=== PATIENT | female | born 1990 | race Caucasian/White ===

== ENCOUNTER 2020-08-19 18:21 | Emergency (ER) | payer SELFPAY ==
[2020-08-19 18:32] VITALS: BP 153/77; PULSE 118; RESP 18; TEMP 37.2; O2SAT 96; BMI 37.3
--- NOTE | 2020-08-19 19:01 | ED.UPPEXIN ---
HPI - Extremity Injury (Upper) General Chief Complaint: Extremity Injury, Upper Stated Complaint: LEFT HAND CAT BITE Time Seen by Provider: 08/19/20 18:58 Source: patient Mode of arrival: Ambulatory Limitations: no limitations History of Present Illness HPI narrative: This is a 29-year-old healthy female with unknown tetanus status. Patient thinks she has not had her tetanus updated least 5 years. She states today her cat got stuck she was trying to help get the cat removed and it became scared and bit her on the thumb region about an our prior to arrival. Patient states there has multiple wounds. One was having some difficulty with stopping bleeding. She states her cat is fully immunized. Patient states she has washed out the wound. She denies any allergies to medications. She states she has had on infection and adenoidectomy. Patient has some swelling at the site. Um no redness, no discharge. No numbness or tingling. Related Data Previous Rx's Medication Instructions Recorded amoxicillin-pot clavulanate 1 tab PO BID #14 tab 08/19/20 [Augmentin] Review of Systems Review of Systems ROS Unobtainable: All systems reviewed & are unremarkable except as noted in HPI and below Exam Narrative Exam Narrative: GENERAL: Alert and oriented x three, female in mild distress. HEENT: Head normocephalic, atraumatic, EOMI, pupils reactive, face symmetric, moist mucous membranes NECK: Supple, full range of motion CARDIOVASCULAR: Regular rate and rhythm without murmurs, rubs or gallops. RESPIRATORY: Breath sounds equal bilaterally, no wheezes rales or rhonchi. EXTREMITIES: Normal range of motion, no clubbing or edema. Neurovascularly intact. Patient has multiple puncture wounds and small abrasions on the thenar eminence and posterior some her left hand. There is some slight swelling. There is no warmth, no erythema or drainage noted. There is no active bleeding at this time. Patient does have full range of motion. NEUROLOGICAL: Cranial nerves II through XII grossly intact. Moving all extremities SKIN: Warm, dry, no petechiae, no rashes or lesions other than above. Initial Vital Signs Initial Vital Signs: Vital Signs Temperature 99 F 08/19/20 18:32 Pulse Rate 118 H 08/19/20 18:32 Respiratory Rate 18 08/19/20 18:32 Blood Pressure 153/77 H 08/19/20 18:32 Pulse Oximetry 96 08/19/20 18:32 Course Orders Ordered: Discontinued Medications Amoxicillin/Clavulanate Potassium (Amoxicillin/Clav 875/125 Mg) 1 tab PO NOW ONE Stop: 08/19/20 19:02 Last Admin: 08/19/20 19:12 Dose: 1 tab Documented by: VANESSA Diphtheria/Tetanus/Acell Pertussis (Tet,Diph,Pertuss(Acell),Vac/Pf 0.5 Ml Syringe) 0.5 ml IM .ONCE ONE Stop: 08/19/20 19:02 Last Admin: 08/19/20 19:12 Dose: 0.5 ml Documented by: VANESSA Vital Signs Vital signs: Vital Signs - 8 hr 08/19/20 18:32 Temperature 99 F Pulse Rate 118 H Respiratory Rate 18 Blood Pressure 153/77 H Pulse Oximetry 96 Discharge Plan Departure Patient Disposition: Home Clinical Impression: Cat bite of left thumb Qualifiers: Encounter type: initial encounter Qualified Code(s): S61.052A - Open bite of left thumb without damage to nail, initial encounter Instructions: DI for Cat Bite Activity Restrictions/Additional Instructions: Follow-up or return to the emergency department if you are having any signs of infection. Take antibiotics until they are completely gone. Prescription to [facility] You may take ibuprofen up to 600 mg every 6 hours and/or Tylenol up to a 1000 mg every 8 hours as needed for pain. Wound Care: Keep wound(s) clean and dry. Wash daily with soap and water only. Do not use over the counter products (alcohol or peroxide)on the wounds unless instructed by a physician you may use a topical triple antibiotic ointment to the affected area. If wound condition worsens (increased/expanding redness, developing fluid blisters, or worsening pain), either contact your doctor for an urgent re-assessment , or return to the Emergency Department. Return to the Emergency Department for any new or worsening symptoms. Return if fever greater than 100.4 Fahrenheit, increased swelling, increasing pain or worsening symptoms such as increased discharge or spreading redness, numbness, tingling or weakness or difficulty with movement. Prescriptions: New amoxicillin-pot clavulanate [Augmentin] 875-125 mg tablet 1 tab PO BID Qty: 14 RF: 0
[2020-08-19] MEDS: TET,DIPH,PERTUSS(ACELL),VAC/PF 0.5 ML SYRINGE IM (19:12)
[2020-08-19] MEDS: AMOXICILLIN/CLAV 875/125 MG 1 TAB PO (19:12)
== END 2020-08-19 19:17 | disposition home or self-care (01) ==
PROVIDERS: Emergency Provider Emergency Medicine
DX: S61.052A Open bite of left thumb without damage to nail, initial encounter (principal); W55.01XA Bitten by cat, initial encounter; Z23 Encounter for immunization
CPT/HCPCS: 90471; 99283; 90715

== ENCOUNTER 2024-05-24 21:53 | Emergency (ER) | payer OTHER, SELFPAY ==
[2024-05-24 22:01] VITALS: BP 175/100; PULSE 83; RESP 18; TEMP 37; O2SAT 98; BMI 37.3
[2024-05-24 22:09] VITALS: BP 172/85
--- NOTE | 2024-05-25 00:33 | ED_ITS ---
HPI - Eye Problem General Chief complaint: Eye Problems Stated complaint: visual changes, pain and swelling Time Seen by Provider: 05/25/24 00:33 Source: patient Mode of arrival: Ambulatory History of Present Illness HPI Narrative: Patient is a 33-year-old female without any significant past medical history who presents today in the emergency department from home for evaluation of eye irritation. She states that it started on Tuesday05/22/2024. States that she feels like there is some pressure to her eyes, patient denies any actual vision loss. She does wear glasses at baseline intermittently with contacts. Denies any trauma or falls. She states that given the discharge that is occurring from her eyes she is having blurry vision but denies any actual loss of vision. She denies any trauma. Not complaining of any other symptoms at this time. Related Data Previous Rx's Medication Instructions Recorded erythromycin 5 mg/gram (0.5 %) eye 0.5 inch EYE-BOTH Q6H 1 week #50 05/25/24 ointment grams Allergies Allergy/AdvReac Type Severity Reaction Status Date / Time No Known Drug Allergies Allergy Verified 05/24/24 22:00 Review of Systems Review of Systems Narrative: General: Denies fever, chills, weight loss HEENT: Positive eye drainage, eye irritation, denies headache head trauma, sore throat, voice change Cardiovascular: Denies any chest pain, palpitations, tachycardia Respiratory: Denies any shortness of breath, cough, wheeze, stridor GI/: Denies any abdominal pain, nausea, vomiting, diarrhea, bright red blood per rectum, melanotic stools, urinary frequency, urinary retention, dysuria, hematuria MSK: Denies any joint pain, muscle pains, swelling Skin: Denies any rashes, lesions, discoloration Neuro: Denies any headache, lightheadedness, dizziness, fainting, weakness Psych: Denies SI/HI Patient History Social History Smoking Status: Former smoker Smoking Status: Former smoker Exam Narrative Exam Narrative: General: Cooperative, comfortable, well-developed, not in acute distress HEENT: Normocephalic, atraumatic, PERRLA, bilateral injected sclera, patient with out any corneal abrasions noted on fluorescein stain negative Drew sign, purulent discharge was noted to bilateral eyes with mild amount of crusting noted to the lower eyelids, right eye pressure: 15 , left eye pressure 17, visual acuity 2/040 bilateral with corrective lenses Neck: Active full range of motion, atraumatic Chest: Normal to inspection, negative crepitus, no overlying erythema ecchymosis Respiratory: Normal respiratory effort, not in acute respiratory distress, clear to auscultation bilaterally negative cough, wheeze, tachypnea, rhonchi, rales Cardiology: Regular rate rhythm negative gallop, murmur, rubs GI/: Normal to inspection, soft, nonrigid, no tenderness to palpation, exam deferred MSK: Full range of active range of motion of all 4 extremities, atraumatic Skin: No rashes lesions noted Neuro: Alert awake oriented x3, moves all 4 extremities spontaneously, cranial nerves intact, able to answer all questions appropriately follows commands appropriately Psych: Cooperative, negative suicidal or homicidal ideations Initial Vital Signs Initial Vital Signs: Vital Signs Temperature 98.6 F 05/24/24 22:01 Pulse Rate 83 05/24/24 22:01 Respiratory Rate 18 05/24/24 22:01 Blood Pressure 175/100 H 05/24/24 22:01 Pulse Oximetry 98 05/24/24 22:01 Oxygen Delivery Method Room Air 05/24/24 22:01 Course Orders Ordered: Discontinued Medications Fluorescein Sodium (Fluorescein 1 Mg Strip) 1 mg EYE-BOTH NOW ONE Stop: 05/25/24 00:05 Proparacaine HCl (Proparacaine 0.5% Ophth Kaylee) 4 drops EYE-BOTH NOW ONE Stop: 05/25/24 00:04 Vital Signs Vital signs: Vital Signs - 8 hr 05/24/24 22:01 05/24/24 22:09 Temperature 98.6 F Pulse Rate 83 Respiratory Rate 18 Blood Pressure 175/100 H 172/85 H Pulse Oximetry 98 Oxygen Delivery Method Room Air MDM - Eye Problem Differential Diagnosis Differential diagnosis: Likely corneal abrasion, acute iritis, subconjunctival hemorrhage, corneal ulcer, ruptured globe and other (Viral conjunctivitis, bacterial conjunctivitis) MDM Narrative Medical decision making narrative: 33-year-old female who presents for eye irritation discharge from bilateral eyes started a few days ago, she does wear contacts intermittently and glasses. On exam patient with bilateral injected sclera, discharge noted with crusting to bilateral eyelids, on exam patient with normal eye pressures bilaterally with tonometry pen, no corneal abrasion negative Drew sign on eye exam. Patient with 20/40 visual acuity with corrective lenses. Patient without any actual loss of vision, there is no pain with extraocular eye motion, there is no exo phthalmos or any other gross deformities. Symptoms more likely associated with viral versus bacterial conjunctivitis we will start patient on erythromycin ointment and instructed to follow up with Ophthalmology in an outpatient setting strict return precautions were given she verbalized understanding of this and agrees to being discharged home with outpatient follow up Discharge Plan Departure Patient Disposition: Home Clinical Impression: Bilateral conjunctivitis Instructions: DI for Conjunctivitis Activity Restrictions/Additional Instructions: Please follow up with Ophthalmology and primary care in outpatient setting Please read the discharge instructions sheet carefully and bring all papers to all doctor follow-up visits, as it may contain information that your doctor may want to see. Disease processes change and evolve, if your symptoms worsen or if you develop any new symptoms that are concerning to you please return for evaluation. Your evaluation today does not show any evidence of any life- threatening/serious illnesses requiring admission to the hospital or surgery. Please follow-up with your doctor for re-evaluation in approximately 1 day. Seek immediate medical attention for any worrisome symptoms. *If you do not have a primary care provider please contact the [facility] Resource line at [phone]. They will ask some questions about your medical history and help get you set up with a doctor in the community. Prescriptions: New erythromycin 5 mg/gram (0.5 %) ointment 0.5 inch EYE-BOTH Q6H 7 Days Qty: 50 0RF Stand Alone Forms: Patient Portal/API/Survey
[2024-05-25] MEDS: ERYTHROMYCIN OPHTH 1 GM OINT 1 APPLIC EYE-BOTH (01:05)
[2024-05-25] MEDS: FLUORESCEIN 1 MG STRIP EYE-BOTH (01:06)
[2024-05-25] MEDS: PROPARACAINE 0.5% OPHTH SOL 4 DROPS EYE-BOTH (01:06)
== END 2024-05-25 01:12 | disposition home or self-care (01) ==
PROVIDERS: Emergency Provider Student in an Organized Health Care Education/Training Program
DX: H10.9 Unspecified conjunctivitis (principal)
CPT/HCPCS: 99282